=== PATIENT | male | born 1970 | race Caucasian/White ===

== ENCOUNTER → 2020-05-27 | Outpatient (CLI) | payer OTHER, MEDICARE ==
--- NOTE | 2020-05-27 16:55 | KCIC ---
EXAMINATION: Magnetic resonance imaging (MRI) of the brain and brainstem without contrast 05/27/2020 3: 37 PM HISTORY: Resting right leg tremors TECHNIQUE: Multiplanar multi-weighted MRI of the brain and brainstem was performed without intravenou s contrast using the general brain protocol. COMPARISON: None available. FINDINGS: The scalp and calvarium are normal. The superior sagittal sinus demonstrates normal venous flow. The corpus callosum is normal in shape and signal intensity. The posterior fossa is unremarkable. The p ituitary and sella are normal. The brainstem and craniocervical junction are unremarkable. Diffusion weighted images reveal no hyperintensities to suggest acute cerebral infarction. The suscep tibility weighted sequences reveal no evidence of acute or chronic hemorrhage. The ventricles are nor mal in size and position without evidence of hydrocephalus. Mild mucosal thickening of the maxillary sinuses. The visualized portions of the mastoids are unrema rkable. The orbits appear normal. Normal flow voids are demonstrated in the carotid arteries and bas ilar artery. IMPRESSION: No evidence of acute or subacute ischemia. Electronically signed by: Nusrat Hardin MD (05/27/2020 4:52 PM) [id number]
== END ==
LOC: KCIC MRI 15:22
PROVIDERS: ATTEND Family Medicine
DX: R25.1 Tremor, unspecified (principal); J34.89 Other specified disorders of nose and nasal sinuses
CPT/HCPCS: 70551